=== PATIENT | male | born 1955 | race Caucasian/White ===

== ENCOUNTER 2020-06-16 15:42 | Outpatient (CLI) | payer MEDICARE, OTHER ==
--- NOTE | 2020-06-16 16:26 | CT ---
Exam: Abdomen CT without contrast Pelvic CT without contrast HISTORY: History of renal calculi. Right-sided pain. COMPARISON: 06/16/2020 FINDINGS: Abdomen CT: Lung bases:Chronic changes. Heart size: Normal heart size. No significant pericardial fluid. Aorta: Normal caliber. Minimal atherosclerosis. Solid organs: Limited evaluation by the absence of IV contrast. Mild atrophy of the pancreas. Lymph nodes: No gastrohepatic, retrocrural or periportal lymphadenopathy Gallbladder: Contracted, due to nonfasting state Mesentery: No mass, lymphadenopathy, free air or free fluid Kidneys: Redemonstration of multiple left renal calculi. Largest calculus appears to be cortical in l ocation, measuring 1.2 cm. No evidence of left sided obstructive uropathy. Focal dilatation of the distal left ureter of uncertain etiology. There is moderate dilatation of the right intrarenal and ex tra renal collecting system secondary to a 1 cm calculus in the distal right ureter. 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 Alimentary canal: Limited evaluation by the absence of oral contrast. Ileocecal junction. Normal leon gaston appendix. Scattered fecal material in a nondistended, nondilated colon. Occasional diverticulum. No diverticulitis. CT PELVIS: No mass, adenopathy, free air or free fluid. Urinary bladder: Unremarkable. Osseous structures: No lytic or blastic lesions IMPRESSION: 1. Moderate right-sided obstructive uropathy secondary to a 1 cm calculus in the distal right ureter. 2. Focal dilatation of the distal left ureter of uncertain significance. There does appear to be abru pt caliber change of the coronal images. Retrograde IVP would be beneficial. Findings conveyed to Dr. Cordova via [facility] 06/16/2020 at 4:26 PM Code CR Transcribed Date/Time: 06/16/2020 4:58 PM
== END 2020-06-16 15:43 | disposition home or self-care (01) ==
LOC: BICCT 15:42
PROVIDERS: ATTEND Urology
DX: N20.2 Calculus of kidney with calculus of ureter (principal); N13.9 Obstructive and reflux uropathy, unspecified; N28.82 Megaloureter
CPT/HCPCS: 74176

== ENCOUNTER 2020-06-28 06:18 | Outpatient (CLI) | payer MEDICARE, OTHER ==
[2020-06-28 08:27] LABS: Hemoglobin 16.1 g/dL (14.0-18.0); Mean Corpuscular HGB CONC 33.7 G/DL (32.0-36.0); Mean Corpuscular Hemoglobin 30.6 PG (27.0-33.0); Mean Corpuscular Volume 90.7 fl (80.0-100.0); Mean Platelet Volume 10.5 fl (7.4-10.4); Platelet Count 241 10x3/uL (130-400); RBC Distribution Width 13.2 % (11.5-14.5); Red Blood Cell (RBC) Count 5.27 10x6/uL (4.40-5.80); White Blood Cell (WBC) Count 7.3 10x3/uL (4.5-11.0)
[2020-06-28 08:46] LABS: PTT 27.5 sec (22.0-33.0); Prothrombin Time 10.3 sec (9.5-12.1)
[2020-06-28 09:06] LABS: Bilirubin Neg (Negative); Blood, Urine 10 (Negative); Clarity Clear (Clear); Glucose, Urine (Dipstick) Normal (Negative); Ketone, Urine Negative (Negative); Leukocyte Negative (Negative); Nitrite Negative (Negative); Protein, Urine (Dipstick) 15 mg/dl (Neg-Trace); Specific Gravity, Urine 1.025 (1.002-1.036); Urobilinogen Normal mg/dL (Less than 2)
[2020-06-28 09:21] LABS: Anion Gap 18 mmol/L (10-20); BUN (Urea Nitrogen) 17 mg/dL (8.4-25.7); Calc. Creatinine Clearance 0 mL/min (70-130); Calcium 9.4 mg/dL (7.8-10.44); Carbon Dioxide 24 mmol/L (23-31); Chloride 104 mmol/L (98-107); Glucose 115 mg/dL (80-115); Sodium 141 mmol/L (136-145)
[2020-06-28 09:42] LABS: Bacteria/HPF None Seen HPF (None Seen); RBC/HPF 0-3 HPF (0-3); Squamous Epithelial None Seen HPF (0-3); WBC/HPF 0-3 HPF (0-3)
[2020-06-29 01:28] LABS: SARS-CoV-2 MS2 Positive; SARS-CoV-2 N Gene Negative; SARS-CoV-2 S Gene Negative; SARS-CoV-2 by NAA Not Detected (NotDetected); SARS-CoV-2 orf1ab Negative
== END 2020-06-28 06:19 | disposition home or self-care (01) ==
LOC: LABBT 06:18
PROVIDERS: ATTEND Urology
DX: Z01.818 Encounter for other preprocedural examination (principal); N40.1 Benign prostatic hyperplasia with lower urinary tract symptoms; N20.0 Calculus of kidney; Q63.1 Lobulated, fused and horseshoe kidney; R35.0 Frequency of micturition; Z20.828 Contact with and (suspected) exposure to other viral communicable diseases
CPT/HCPCS: 80048; 81001; 85027; 85610; 85730; 87086; 93005; U0003; 87635; 93010

== ENCOUNTER 2020-07-01 06:29 | Day surgery (SDC) | payer MEDICARE, OTHER ==
[2020-06-30 11:13] VITALS: BMI 37.6
[2020-07-01] MEDS ORDERED: Levofloxacin 500 mg/D5W 100 ml Premix Bag ONE (08:04)
[2020-07-01] MEDS ORDERED: B & O ONE (08:37)
[2020-07-01] MEDS ORDERED: Fentanyl 100 MCG/2 ML VIAL ONE (08:43)
--- NOTE | 2020-07-01 10:39 | OP ---
DATE OF PROCEDURE: 07/01/2020 SERVICE: Urology. PREOPERATIVE DIAGNOSIS: Right ureteral stone. POSTOPERATIVE DIAGNOSIS: Right ureteral stone with right distal ureteral stricture. PROCEDURE PERFORMED: Right ureteroscopy, laser lithotripsy, basket extraction of stone, dilation of right distal ureteral stricture, and placement of a 6 x 26 double-J stent. INDICATION FOR PROCEDURE: Mr. Kim is a 64-year-old white male with a history of nephrolithiasis. He stated he had right flank pain, which is relatively severe for a period of time, but then subsequently the pain subsided. He thought he passed a stone and I recommended confirmation CT, which showed the stone was still in place. I recommended ureteroscopy for removal. Risks and benefits were discussed and he has agreed to proceed forward. DESCRIPTION OF PROCEDURE: After identification of armband and verification of consent, the patient was brought back to the operating room, where he underwent general anesthesia with an LMA. He was then placed in dorsal lithotomy position and prepped and draped in usual sterile fashion. After appropriate time-out, a lubricated 22-German rigid cystoscope was introduced per urethra into the bladder. The prostate was hypertrophic with elevated bladder neck. The bladder showed grade 1 trabeculation, but otherwise was unremarkable. Both ureters were in orthotopic location. Attempts to cannulate the right ureter with a Sensor wire was unsuccessful indicating that there was a possible stone very distally, but on fluoroscopy, the stone appeared to be approximately 1 to 2 cm proximal to where the wire was getting stuck, indicating that there was another pathology at the distal ureter. Upon closer inspection, it appeared that there may be scar tissue at that location. I elected to abort with the cystoscope and bring in the semi-rigid ureteroscope directly. The ureteroscope was brought in and intubated into the distal ureter, where immediately the wall of scar tissue was noted. We were able to gently navigate a Sensor wire through a small lumen and the stricture up into the renal pelvis. The ureteroscope was then withdrawn to keep the Sensor wire in place as a safety wire and then the ureteroscope reintroduced alongside the Sensor wire back into the bladder using gentle pressure and following the Sensor wire. The ureteroscope was able to gently dilate the ureteral stricture until the stricture perforated and then we were into a very large dilated lumen of proximal ureter. At this point, the stone was immediately recognizable. Using a 365 micron laser fiber, the stone was fragmented into smaller pieces and then using a 1.9-German Zero Tip Nitinol basket, the fragments were removed and collected for stone analysis. Upon final ureteroscopy, there was only mild stone dust in submillimeter fragments, which should pass without a problem. Given the dilation of the distal ureteral stricture, I recommend that the patient keep a stent in for 2 weeks. The ureteroscope was withdrawn and the cystoscope was reintroduced over the Sensor wire back into the bladder. A 6 x 26 double-J stent was advanced over the Sensor wire up to the level of renal pelvis and the wire removed leaving a good curl in the kidney and a good curl in the bladder. The bladder was then emptied, removing any additional stone fragments and then removed. The patient had B and O suppository placed in his rectum. He was then taken out of positioning, awakened, taken to PACU for recovery in stable condition. COMPLICATIONS: None. ESTIMATED BLOOD LOSS: Minimal. RETAINED TUBES AND DRAINS: 6 x 26 double-J stent on the right. SPECIMENS: Stone for stone analysis. DISPOSITION: The patient will be discharged home and follow up with me in approximately 2 weeks for cystoscopy and stent pull. He will need followup to ensure that his stricture does not recur. If it does, we may consider a formal dilation and if that is unsuccessful, he may actually require ureteral reimplant. Job ID: [id number]
[2020-07-01] MEDS ORDERED: Ketorolac Tromethamine 30 MG/ML VIAL ONE (11:01)
[2020-07-01] MEDS ORDERED: PROPOFOL 200 MG/20 ML VIAL ONE (11:01)
[2020-07-01] MEDS ORDERED: Ondansetron PF 4 MG/2 ML Vial ONE (11:01)
[2020-07-01] MEDS ORDERED: Dexamethasone 20 MG/5 ML VIAL ONE (11:01)
[2020-07-01] MEDS ORDERED: Lidocaine 1% PF 5 ML VIAL ONE (11:01)
[2020-07-01] MEDS ORDERED: Glycopyrrolate 0.2 MG/ML 5 ML SYRINGE ONE (11:01)
[2020-07-01] MEDS ORDERED: PHENYLEPHRINE-NS 100 MCG/ML 10 ML SYRINGE ONE (11:01)
== END 2020-07-01 13:05 | disposition home or self-care (01) ==
LOC: SDC 06:29
PROVIDERS: ATTEND Urology
PROC: 0TC68ZZ Extirpation of Matter from Right Ureter, Via Natural or Artificial Opening Endoscopic (ICD-10-PCS; principal; 2020-07-01)
PROC: 0T768DZ Dilation of Right Ureter with Intraluminal Device, Via Natural or Artificial Opening Endoscopic (ICD-10-PCS; 2020-07-01)
DX: N20.1 Calculus of ureter (principal); Q63.1 Lobulated, fused and horseshoe kidney; N40.1 Benign prostatic hyperplasia with lower urinary tract symptoms; N13.5 Crossing vessel and stricture of ureter without hydronephrosis; N32.89 Other specified disorders of bladder; M19.90 Unspecified osteoarthritis, unspecified site; Z79.899 Other long term (current) drug therapy
CPT/HCPCS: 76000; 82365; 88300; J1100; J1885; J1956; J2405; J2704; J3010

== ENCOUNTER 2020-10-05 06:59 | Outpatient (CLI) | payer MEDICARE, OTHER ==
[2020-10-05 10:07] LABS: Hemoglobin 15.8 g/dL (13.5-17.5); Mean Corpuscular HGB CONC 33.3 g/dL (32.0-36.0); Mean Corpuscular Hemoglobin 30.2 pg (27.0-33.0); Mean Corpuscular Volume 90.8 fl (81.2-95.1); Mean Platelet Volume 11.1 fl (7.4-10.4); Platelet Count 248 10x3/uL (150-450); RBC Distribution Width 13.2 % (11.5-14.5); Red Blood Cell (RBC) Count 5.23 10x6/uL (4.32-5.72); White Blood Cell (WBC) Count 7.4 10x3/uL (3.5-10.5)
[2020-10-05 10:15] LABS: Bilirubin Neg (Negative); Blood, Urine Negative (Negative); Clarity Clear (Clear); Glucose, Urine (Dipstick) Normal (Negative); Ketone, Urine Negative (Negative); Leukocyte Negative (Negative); Nitrite Negative (Negative); Protein, Urine (Dipstick) Negative (Neg-Trace); Urobilinogen Normal mg/dL (Less than 2)
[2020-10-05 10:15] LABS: Anion Gap 13 mmol/L (10-20); BUN (Urea Nitrogen) 13 mg/dL (8.4-25.7); Calc. Creatinine Clearance 0 mL/min (70-130); Calcium 9.2 mg/dL (7.8-10.44); Carbon Dioxide 25 mmol/L (23-31); Chloride 105 mmol/L (98-107); Glucose 83 mg/dL (80-115); Potassium 4.6 mmol/L (3.5-5.1); Sodium 138 mmol/L (136-145)
[2020-10-05 10:41] LABS: PTT 29.2 sec (22.0-33.0); Prothrombin Time 10.3 sec (9.5-12.1)
[2020-10-05 11:13] LABS: Bacteria/HPF None Seen HPF (None Seen); RBC/HPF 0-3 HPF (0-3); Squamous Epithelial 0-3 HPF (0-3); WBC/HPF 0-3 HPF (0-3)
[2020-10-05 18:59] LABS: SARS-CoV-2 PCR by NAA Not Detected (NotDetected)
== END 2020-10-05 07:00 | disposition home or self-care (01) ==
LOC: LABBT 06:59
PROVIDERS: ATTEND Urology
DX: Z01.818 Encounter for other preprocedural examination (principal); N18.1 Chronic kidney disease, stage 1; N20.0 Calculus of kidney; N40.1 Benign prostatic hyperplasia with lower urinary tract symptoms; Q63.1 Lobulated, fused and horseshoe kidney; R35.0 Frequency of micturition; Z20.822 Contact with and (suspected) exposure to COVID-19
CPT/HCPCS: 80048; 81001; 85027; 85610; 85730; 87086; 93005; U0003; U0005; 87635; 93010

== ENCOUNTER 2020-10-08 05:57 | Day surgery (SDC) | payer MEDICARE, OTHER ==
[2020-10-07 10:32] VITALS: BMI 36.9
[2020-10-08] MEDS ORDERED: Iothalamate Meglumine 60% 50 ML VIAL FS ONE (06:41)
[2020-10-08] MEDS ORDERED: B & O ONE (06:41)
[2020-10-08] MEDS ORDERED: Levofloxacin 500 mg/D5W 100 ml Premix Bag ONE (06:52)
[2020-10-08] MEDS ORDERED: Fentanyl 100 MCG/2 ML VIAL ONE (07:01)
[2020-10-08] MEDS ORDERED: Dexmedetomidine 200 MCG/2 ML VIAL ONE (07:02)
[2020-10-08] MEDS ORDERED: Midazolam HCl 2 mg/2 ml Vial ONE (07:18)
[2020-10-08] MEDS ORDERED: Rocuronium Bromide 10 MG/ML (10ML VIAL) ONE (07:43)
[2020-10-08] MEDS ORDERED: Ondansetron PF 4 MG/2 ML Vial ONE (07:43)
[2020-10-08] MEDS ORDERED: Glycopyrrolate 0.2 MG/ML 5 ML SYRINGE ONE (07:43)
[2020-10-08] MEDS ORDERED: ePHEDrine 50 MG/ML VIAL ONE (07:43)
[2020-10-08] MEDS ORDERED: PHENYLEPHRINE-NS 100 MCG/ML 10 ML SYRINGE ONE ×2 (07:43→08:25)
[2020-10-08] MEDS ORDERED: Dexamethasone 20 MG/5 ML VIAL ONE (07:43)
[2020-10-08] MEDS ORDERED: PROPOFOL 200 MG/20 ML VIAL ONE (07:43)
[2020-10-08] MEDS ORDERED: Lidocaine 1% PF 5 ML VIAL ONE (07:43)
[2020-10-08] MEDS ORDERED: Phenylephrine 10 MG/ML VIAL ONE (08:25)
[2020-10-15 16:15] LABS: CA Oxalate Monohydrate 100 % (.); Color Brown (.); Stone Weight 199 mg (.)
== END 2020-10-08 13:20 | disposition home or self-care (01) ==
LOC: SDC 05:57
PROVIDERS: ATTEND Urology
PROC: 0TC48ZZ Extirpation of Matter from Left Kidney Pelvis, Via Natural or Artificial Opening Endoscopic (ICD-10-PCS; principal; 2020-10-08)
PROC: 0T778DZ Dilation of Left Ureter with Intraluminal Device, Via Natural or Artificial Opening Endoscopic (ICD-10-PCS; 2020-10-08)
DX: N20.0 Calculus of kidney (principal); Q63.1 Lobulated, fused and horseshoe kidney; N40.1 Benign prostatic hyperplasia with lower urinary tract symptoms; R35.0 Frequency of micturition; N18.1 Chronic kidney disease, stage 1; M19.90 Unspecified osteoarthritis, unspecified site; Z79.899 Other long term (current) drug therapy
CPT/HCPCS: 76000; 82365; 88300; J1100; J1956; J2250; J2370; J2405; J2704; J3010; J3490; Q9961

== ENCOUNTER 2022-11-23 06:55 | Outpatient (CLI) | payer MEDICARE, OTHER | END 2022-11-23 06:56 | disposition home or self-care (01) | LOC: BICULT 06:55 | PROVIDERS: ATTEND Urology | DX: N20.0 Calculus of kidney (principal); Q63.1 Lobulated, fused and horseshoe kidney; N13.30 Unspecified hydronephrosis | CPT/HCPCS: 76770 ==